=== PATIENT | female | born 2000 | race Two or more races ===

== ENCOUNTER 2024-10-21 11:51 | Emergency (ER) | payer OTHER ==
[~2024-10-21] VITALS: Ht 149.9 cm; Wt 64.0 kg
[2024-10-21] MEDS ORDERED: KETOROLAC TROMETHAMINE 60 MG VIAL IM STA (14:18)
[2024-10-21] MEDS ORDERED: KETOROLAC TROMETHAMINE 60 MG VIAL IM ONE (14:37)
== END 2024-10-21 15:38 | disposition home or self-care (01) ==
LOC: ER 12:05
DX: R51.9 Headache, unspecified (principal)